=== PATIENT | male | born 1970 | race Caucasian/White ===

== ENCOUNTER 2017-05-16 12:49 | Emergency (ER) | payer BC ==
[2017-05-16 13:23] VITALS: BP 138/88
--- NOTE | 2017-05-16 14:14 | UC ---
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 Pt c/o sudden onset to deltoid pain in right shoulder. Pt reports that has pain right shoulder. - History of Current Complaint Chief Complaint: UCUpperExtremity Stated Complaint: RIGHT SHOULDER PAIN Time Seen by Provider: 05/16/17 13:47 Hx Obtained From: Patient Onset/Duration: Sudden Onset, Still Present, Worse Since - onset Timing: Constant Severity Initially: Mild Severity Currently: Mild Character: Dull, Aching, Stiffness - right shoulder Aggravating Factor(s): Movement Alleviating Factor(s): Rest Associated Signs And Symptoms: Positive: Negative Related History: Dominant Hand Right - Risk Factors Non-Orthopedic Risk Factor: Negative DVT Risk Factors: Negative - Allergies/Home Medications Allergies/Adverse Reactions: Allergies Allergy/AdvReac Type Severity Reaction Status Date / Time Amoxicillin Allergy Rash Verified 05/16/17 13:22 Penicillins Allergy Rash Verified 05/16/17 13:22 Tetracycline Allergy Rash Verified 05/16/17 13:22 PMH/Surg Hx/FS Hx/Imm Hx Previously Healthy: Yes - Surgical History Surgical History: Yes Surgery Procedure, Year, and Place: Throat surgery - Family History Known Family History: Positive: Hypertension - Social History Occupation: Employed Full-time Lives: With Family Alcohol Use: Daily Alcohol Amount: mostly on weekends Substance Use Type: None Smoking Status (MU): Former Smoker Have You Smoked in the Last Year: No When Did the Patient Quit Smoking/Using Tobacco: 07/01/16 Review of Systems Constitutional: Negative Skin: Negative Eyes: Negative ENT: Negative Respiratory: Negative Cardiovascular: Negative Gastrointestinal: Negative Genitourinary: Negative Motor: Decreased ROM - right shoulder secondary to pain Neurovascular: Negative Musculoskeletal: Arthralgia - right shoulder, Decreased ROM - right shoulder secondary to pain, Myalgia - right shoulder Neurological: Negative Psychological: Negative Is Patient Immunocompromised?: No All Other Systems Reviewed And Are Negative: Yes Physical Exam Triage Information Reviewed: Yes Appearance: Well-Appearing Vital Signs: Initial Vital Signs Temp 98.3 F 05/16/17 13:18 Pulse 97 05/16/17 13:18 Resp 16 05/16/17 13:18 BP 138/88 05/16/17 13:18 Pulse Ox 98 05/16/17 13:18 Vital Signs Reviewed: Yes Eye Exam: Normal ENT Exam: Normal Neck exam: Normal Respiratory Exam: Other Respiratory: Positive: No respiratory distress Musculoskeletal Exam: Other Musculoskeletal: Positive: Strength Intact, No Edema, ROM Limited @ - right shoulder, secondary to pain Neurological Exam: Normal Psychological Exam: Normal Skin Exam: Normal Shoulder Course/Dx - Differential Dx/Diagnosis Differential Diagnosis/HQI/PQRI: Rotator Cuff Injury, Sprain, Strain Provider Diagnoses: right shoulder injury/strain Discharge - Discharge Plan Condition: Stable Disposition: HOME Patient Education Materials: Arthralgia (ED), Shoulder Pain (ED) Referrals: No Primary Care Phys,NOPCP [Primary Care Provider] - [facility] [Outside] Miguel Gross MD [Medical Doctor] - Additional Instructions: Please follow up with your PCP or return to clinic as needed. We have provided a referral to an orthopedic provided for you to follow up with as needed.
--- NOTE | 2017-05-16 14:45 | RAD ---
Dictation: 3 indication: Right shoulder pain. 3 views of the right shoulder demonstrates AC joint arthritis. There is no evidence of fracture noted. IMPRESSION: AC joint arthritis without evidence of fracture.
== END 2017-05-16 15:02 | disposition home or self-care (01) ==
LOC: UCCORT 12:49
DX: S46.911A Strain of unspecified muscle, fascia and tendon at shoulder and upper arm level, right arm, initial encounter (principal); X50.1XXA Overexertion from prolonged static or awkward postures, initial encounter; Y93.H3 Activity, building and construction; Y92.69 Other specified industrial and construction area as the place of occurrence of the external cause; Y99.0 Civilian activity done for income or pay; Z88.0 Allergy status to penicillin; Z88.1 Allergy status to other antibiotic agents; Z87.891 Personal history of nicotine dependence
CPT/HCPCS: 99211; G0463

== ENCOUNTER 2018-12-16 12:55 | Emergency (ER) | payer BC ==
[2018-12-16 13:16] VITALS: BP 130/86
--- NOTE | 2018-12-16 13:28 | ED ---
GI/ HPI - HPI Summary HPI Summary: 48 yr old male with the complaint of right sided anal and posterior scrotal pain. Onset of pain 5 days ago, and progressively worse. He has developed swelling now of the area between the scrotum and the anus. No drainage. Pain is moderate, worse to sit. No fever or chills. He does not feel ill. - History of Current Complaint Chief Complaint: UCGeneralIllness Time Seen by Provider: 12/16/18 13:05 Stated Complaint: SKIN COMPLAINT Pain Intensity: 7 - Allergy/Home Medications Allergies/Adverse Reactions: Allergies Allergy/AdvReac Type Severity Reaction Status Date / Time acetaminophen [From Vicodin] Allergy Unknown "jittery", Verified 12/16/18 13:09 anxious amoxicillin Allergy Unknown Rash Verified 12/16/18 13:09 hydrocodone [From Vicodin] Allergy Unknown "jittery", Verified 12/16/18 13:09 anxious Penicillins Allergy Unknown Rash Verified 12/16/18 13:09 Tetracyclines Allergy Unknown Rash Verified 12/16/18 13:09 PMH/Surg Hx/FS Hx/Imm Hx - Surgical History Surgery Procedure, Year, and Place: Throat surgery Infectious Disease History: No Infectious Disease History: Denies: Traveled Outside the [place] in Last 30 Days - Family History Known Family History: Positive: Hypertension - Social History Occupation: Employed Full-time Alcohol Use: Occasionally Alcohol Amount: mostly on weekends Substance Use Type: Reports: None Smoking Status (MU): Former Smoker Have You Smoked in the Last Year: No Review of Systems Negative: Fever, Chills Positive: Other - perianal swelling, into scrotal area. All Other Systems Reviewed And Are Negative: Yes Physical Exam Triage Information Reviewed: Yes Vital Signs On Initial Exam: Initial Vitals Temp Pulse Resp BP Pulse Ox 98 F 113 18 130/86 98 12/16/18 13:09 12/16/18 13:09 12/16/18 13:09 12/16/18 13:09 12/16/18 13:09 Vital Signs Reviewed: Yes Appearance: Positive: Well-Appearing, No Pain Distress Skin: Positive: Warm, Other - erythema right anal area to the right scrotum. Eyes: Positive: EOMI ENT: Positive: Normal ENT inspection Neck: Positive: Nontender Respiratory/Lung Sounds: Positive: Clear to Auscultation, Breath Sounds Present Cardiovascular: Positive: RRR. Negative: Murmur Abdomen Description: Negative: Distended Male Genital Exam: Positive: Scrotum Tenderness (R) - right posterior, Other - tenderness right inferior scrotum. He has large right side inguinal hernia. Left side inguinal hernia present as well.. Negative: Scrotum Tenderness (L), Testicular Tenderness (R), Testicular Tenderness (L) Musculoskeletal: Positive: Strength/ROM Intact Neurological: Positive: Sensory/Motor Intact, Alert, Oriented to Person Place, Time, CN Intact II-III Psychiatric: Positive: Normal Diagnostics - Vital Signs Vital Signs Temp Pulse Resp BP Pulse Ox 12/16/18 13:09 98 F 113 18 130/86 98 - Laboratory Lab Statement: Any lab studies that have been ordered have been reviewed, and results considered in the medical decision making process. GIGU Course/Dx - Course Course Of Treatment: 48 yr old declined ambulance transport to the hospital. He verbalized he is driving to [facility]. I have contacted Allyson Gutierrez NP at the ER and she is aware the patient is coming with his scrotal , and anal complaints. He has chronic inguinal hernias as well that need further attention. - Diagnoses Provider Diagnoses: Inguinal hernia, Nolvia-rectal abscess, Perianal abscess Discharge - Sign-Out/Discharge Documenting (check all that apply): Patient Departure All imaging exams completed and their final reports reviewed: No Studies - Discharge Plan Condition: Good Disposition: HOME-RECOMMEND TO ED Patient Education Materials: Anorectal Abscess and Anal Fistula (ED), Rectal Abscess (ED) Referrals: No Primary Care Phys,NOPCP [Primary Care Provider] - Additional Instructions: You need to go to the ER for further evaluation of your abscess. You may require going to the OR for treatment. Do not delay. You have been offered an ambulance but have chosen to drive yourself. - Billing Disposition and Condition Condition: GOOD Disposition: Home-Recommend to ED
== END 2018-12-16 13:32 | disposition home health service (06) ==
LOC: UCCORT 12:55
DX: K40.90 Unilateral inguinal hernia, without obstruction or gangrene, not specified as recurrent (principal); K61.1 Rectal abscess; K61.0 Anal abscess; Z87.891 Personal history of nicotine dependence; Z88.8 Allergy status to other drugs, medicaments and biological substances; Z88.0 Allergy status to penicillin; Z88.1 Allergy status to other antibiotic agents; Z88.5 Allergy status to narcotic agent
CPT/HCPCS: 99212; G0463